=== PATIENT | female | born 1985 | race Caucasian/White ===

== ENCOUNTER 2023-05-27 15:08 | Emergency (ER) | payer OTHER ==
[2023-05-27 15:31] VITALS: BP 106/73; PULSE 89; RESP 20; TEMP 98.9; BMI 49.2
[2023-05-27] MEDS ORDERED: ALBUTEROL SO4 2.5/IPRATROPIUM 0.5 INH SOL 3 ML VIAL.NEB. NEB ONE ×2 (15:43→15:46)
[2023-05-27] MEDS ORDERED: DEXAMETHASONE SOD PHOSPHATE 10 MG/1 ML VIAL IM ONE (15:44)
[2023-05-27] MEDS ORDERED: DEXAMETHASONE SOD PHOSPHATE 10 MG/1 ML VIAL ONE (15:46)
== END 2023-05-27 17:56 | disposition home or self-care (01) ==
LOC: JERFT 15:08
PROC: 3E023GC Introduction of Other Therapeutic Substance into Muscle, Percutaneous Approach (ICD-10-PCS; principal; 2023-05-27)
PROC: 3E0F7GC Introduction of Other Therapeutic Substance into Respiratory Tract, Via Natural or Artificial Opening (ICD-10-PCS; 2023-05-27)
DX: R05.9 Cough, unspecified (principal); R06.02 Shortness of breath; R09.89 Other specified symptoms and signs involving the circulatory and respiratory systems; R50.9 Fever, unspecified; H04.213 Epiphora due to excess lacrimation, bilateral lacrimal glands; J06.9 Acute upper respiratory infection, unspecified; J45.21 Mild intermittent asthma with (acute) exacerbation
CPT/HCPCS: 71046-TC-FY; 99284-25; J1100